=== PATIENT | male | born 1975 | race Caucasian/White ===

== ENCOUNTER 2021-11-21 11:18 | Emergency (ER) | payer OTHER ==
[2021-11-21 11:32] VITALS: BP 114/74
[2021-11-21] MEDS ORDERED: RABIES VACCINE 2.5 UNIT SYRINGE IM ONE (12:35)
--- NOTE | 2021-11-21 13:07 | ED Physician Documentation ---
History of Present Illness - Stated complaint Stated Complaint: BAT EXPOSURE - Chief complaint Chief Complaint: Exposure - History obtained from History obtained from: Patient - Additonal information Additional information: The pt comes to the ED for CC of needing his second rabies vaccination in the series. He had his first dose in [place], where he resides, after awakening a few days ago to find a bat in his house. He is not aware of having been bitten, and is feeling completely normal. No other complaints at this time. Pt is otherwise healthy. Review of Systems Ten Systems: 10 systems reviewed and negative Constitutional: reports: Reviewed and negative Eyes: reports: Reviewed and negative Ears: reports: Reviewed and negative Nose: reports: Reviewed and negative Throat: reports: Reviewed and negative Cardiac: reports: Reviewed and negative Respiratory: reports: Reviewed and negative GI: reports: Reviewed and negative : reports: Reviewed and negative Skin: reports: Reviewed and negative Musculoskeletal: reports: Reviewed and negative Neurologic: reports: Reviewed and negative Psychiatric: reports: Reviewed and negative Endocrine: reports: Reviewed and negative Immunocompromised: reports: Reviewed and negative PD PAST MEDICAL HISTORY - Present Medications Home Medications: Ambulatory Orders Medication Instructions Recorded Confirmed No Known Home Medications 11/21/21 11/21/21 - Allergies Allergies/Adverse Reactions: Allergies Allergy/AdvReac Type Severity Reaction Status Date / Time No Known Drug Allergies Allergy Verified 11/21/21 11:31 PD ED PE NORMAL - Vitals Vital signs reviewed: Yes - General General: Alert and oriented X 3, No acute distress, Well developed/nourished - HEENT HEENT: Atraumatic, PERRL, EOMI, Moist mucous membranes - Neck Neck: Supple, no meningeal sign - Respiratory Respiratory: No respiratory distress - Derm Derm: Normal color, Warm and dry, No rash - Extremities Extremities: No deformity - Neuro Neuro: Alert and oriented X 3, Other (grossly intact) - Psych Psych: Normal mood, Normal affect Results - Vitals Vitals: Oxygen O2 Source Room air PD MEDICAL DECISION MAKING - ED course Complexity details: considered differential, d/w patient ED course: The pt was administered his second rabies vaccination in the ED, and was instructed to follow the schedule for further vaccinations, which he already has in his possession. We have discussed the usual indications for return. Departure - Departure Disposition: 01 Home, Self Care Clinical Impression: Need for rabies vaccination, Exposure to bat without known bite Condition: Stable Instructions: Rabies Vaccine suspension for injection Comments: You have been given your second rabies vaccine today. Please follow-up according to your schedule for your next vaccine, as directed. Discharge Date/Time: 11/21/21 13:20
== END 2021-11-21 13:20 | disposition home or self-care (01) ==
LOC: ED 11:18
DX: Z29.14 Encounter for prophylactic rabies immune globulin (principal)
CPT/HCPCS: 90471; 99281; 99282